=== PATIENT | male | born 1960 | race Hispanic/Latino ===

== ENCOUNTER 2018-09-08 18:50 | Observation (INO) | payer BC, OTHER ==
[~2018-09-08] VITALS: Ht 180.3 cm; Wt 103.4 kg
[~2018-09-08 18:50] MED LIST: NEXIUM40 MG
--- OUTSIDE RECORDS SUMMARY | 2018-09-08 18:53 | XMS REPORT | Clinical Summary ---
Author Author [facility] Address Unknown Phone Unavailable Care Team Providers Care Data Analysis Manager Name Role Phone Asked, No Pcp PCP Unavailable Allergies No Known Allergies Medications End Date Status Medication Sig Dispensed Refills Start Date Active acetaminophen-codeine Take 1 tablet 0 (TYLENOL WITH CODEINE #3) by mouth 8 300-30 mg per tablet every 6 (six) hours as needed. Active b complex vitamins Take 1 0 capsule capsule by mouth daily. Active KRILL OIL ORAL Take by 0 mouth. Active SAW PALMETTO ORAL Take by 0 mouth. 05/29/2019 Active meloxicam (MOBIC) 15 mg Take 1 tablet 30 tablet 1 tabletIndications: (15 mg total) 9 Primary osteoarthritis of by mouth right knee, daily. Patellofemoral arthralgia of right knee Active Problems Problem Noted Date Primary osteoarthritis of right knee 05/29/2018 Patellofemoral arthralgia of right knee 05/29/2018 Kidney stones Encounters Care Team Description Date Type Specialty Sari Multani DO Primary osteoarthritis of right knee (Primary Dx); Patellofemoral arthralgia of right knee 05/29/2018 Office Visit Sports Medicine after 09/07/2017 Family History Medical History Relation Name Comments Prostate cancer Father Liver cancer Mother Diabetes type II Sister Relation Name Status Comments Father Mother Sister Social History Date Tobacco Use Types Packs/Day Years Used Current Some Day Smoker Smokeless Tobacco: Never Used Tobacco Cessation: Ready to Quit: No; Counseling Given: Yes Alcohol Use Drinks/Week oz/Week Comments Yes occasional Sex Assigned at Date Recorded Not on file Industry Job Start Date Occupation Not on file Not on file Not on file Travel End Travel History Travel Start No recent travel history available. Last Filed Vital Signs Time Taken Vital Sign Reading 05/29/2018 8:14 AM PAID SEARCH MARKETING ANALYST Blood Pressure 113/78 05/29/2018 8:14 AM PAID SEARCH MARKETING ANALYST Pulse 57 - Temperature - - Respiratory Rate - - Oxygen Saturation - - Inhaled Oxygen - Concentration 05/29/2018 8:14 AM PAID SEARCH MARKETING ANALYST Weight 107 kg (236 lb 9.6 oz) 05/29/2018 8:14 AM PAID SEARCH MARKETING ANALYST Height 175.3 cm (5' 9") 05/29/2018 8:14 AM PAID SEARCH MARKETING ANALYST Body Mass Index 34.94 Plan of Treatment Health Maintenance Due Date Last Done Comments COLON CANCER SCREENING 2009 SHINGLES VACCINES (#1) 2009 INFLUENZA VACCINE 12/25/2018 Procedures Comments Procedure Name Priority Date/Time Associated Diagnosis XR KNEE 4+ VW RIGHT Routine 05/29/2018 Right knee pain, 8:22 AM PAID SEARCH MARKETING ANALYST unspecified chronicity after 09/07/2017 Results * XR Knee 4+ Vw Right (05/29/2018 8:22 AM PAID SEARCH MARKETING ANALYST) Narrative Performed At [facility] 4V of the right knee were personally reviewed by me in clinic. There are no fractures, dislocations, suspicious bone lesions or soft tissue masses. There is severe osteoarthrosis of the medial compartment with joint space collapse and osteophyte formation. Milder degenerative changes and osteophyte development seen at the patellofemoral joint. Mild varus deformity. Ossicle present in the patellar tendon just inferior to the patella. Sari Multani DO [facility] Performing Organization Address City/State/[facility] Phone Number [facility] [address] [place] [address] after 09/07/2017 Insurance Payer Benefit Subscriber ID Type Phone Address Plan / Group MULTIPLAN ALLIED/PHC xxxxxxxxx PPO S-MULTIPLA N , #1 [facility] (Home) [place] [address] Advance Directives Patient has advance care planning documents on file. For more information, jason rausch contact: Bakari Bellamy [address] [place] [address]
--- NOTE | 2018-09-08 19:29 | NUR ---
FM X 2 WITH PT
--- NOTE | 2018-09-08 19:44 | NUR ---
REPORT TO ANA
--- OUTSIDE RECORDS SUMMARY | 2018-09-08 19:58 | XMS REPORT | Clinical Summary ---
Author Author [facility] Organization [facility] Address Unknown Phone Unavailable Care Team Providers Care Knitting Machine Mechanic Name Role Phone Asked, No Pcp PCP [...] Taken Vital Sign Reading 05/29/2018 8:14 AM PRODUCT SUPPORT MANAGER Blood Pressure 113/78 05/29/2018 8:14 AM PRODUCT SUPPORT MANAGER Pulse 57 - Temperature - - Respiratory Rate - - Oxygen Saturation - - Inhaled Oxygen - Concentration 05/29/2018 8:14 AM PRODUCT SUPPORT MANAGER Weight 107 kg (236 lb 9.6 oz) 05/29/2018 8:14 AM PRODUCT SUPPORT MANAGER Height 175.3 cm (5' 9") 05/29/2018 8:14 AM PRODUCT SUPPORT MANAGER Body Mass Index 34.94 Plan of Treatment Health Maintenance Due Date Last Done Comments COLON CANCER SCREENING 2009 SHINGLES VACCINES (#1) 2009 INFLUENZA VACCINE 12/25/2018 Procedures Comments Procedure Name Priority Date/Time Associated Diagnosis XR KNEE 4+ VW RIGHT Routine 05/29/2018 Right knee pain, 8:22 AM PRODUCT SUPPORT MANAGER unspecified chronicity after 09/07/2017 Results * XR Knee 4+ Vw Right (05/29/2018 8:22 AM PRODUCT SUPPORT MANAGER) Narrative Performed At [facility] 4V of [...] Primary Care Sports Medicine Performing Organization Address City/State/[facility] Phone Number [facility] [address] [place] [address] after 09/07/2017 Insurance Payer Benefit Subscriber ID Type Phone Address Plan / Group MULTIPLAN ALLIED/PHC xxxxxxxxx PPO S-MULTIPLA N , #[address] [facility] (Home) [place] [address] Advance Directives Patient has advance care planning documents on file. For more information, jason rausch contact: Bakari Bellamy [address] [place] [address]
[2018-09-08] MEDS ORDERED: HYDROCODONE/APAP 7.5MG-325MG 1 EA TAB PO PRN (20:00)
[2018-09-08] MEDS ORDERED: SODIUM CHLORIDE FLUSH 10 ML SYR INJ PRN (20:00)
[2018-09-08] MEDS ORDERED: IBUPROFEN 200 MG TAB PO PRN (20:00)
[2018-09-08] MEDS ORDERED: ASPIRIN 81 MG CHEW TAB PO ONE (20:00)
[2018-09-08] MEDS ORDERED: DIPHENHYDRAMINE HCL INJ 50 MG/ML VIAL IV PRN (20:00)
[2018-09-08] MEDS ORDERED: ACETAMINOPHEN 325 MG TAB PO PRN (20:00)
[2018-09-08] MEDS ORDERED: IBUPROFEN 400 MG TAB PO PRN (20:15)
--- NOTE | 2018-09-08 20:16 | Diagnostic Imaging Report ---
EXAMINATION: CXR 1 [facility] INDICATION: Chest pain. Shortness of breath. COMPARISON: None FINDINGS: TUBES and LINES: None. LUNGS: Lungs are well inflated. Lungs are clear. There is no evidence of pneumonia or pulmonary edema. PLEURA: No pleural effusion or pneumothorax. HEART AND MEDIASTINUM: The cardiomediastinal silhouette is unremarkable. There are atherosclerotic calcifications within the aorta. BONES AND SOFT TISSUES: No acute osseous lesion. Soft tissues are unremarkable. UPPER ABDOMEN: No free air under the diaphragm. IMPRESSION: No acute thoracic abnormality. Signed by: Dr. Wyatt Guerra M.D. on 09/08/2018 8:13 PM
[2018-09-08] MEDS: FAMOTIDINE 20 MG/2 ML VIAL IV SCH (20:32)
[2018-09-08 20:55] VITALS: BP 136/73
[2018-09-08 21:00] VITALS: BP 136/73
[2018-09-08] MEDS ORDERED: ZOLPIDEM TARTRATE 5 MG TAB PO PRN (21:00)
--- NOTE | 2018-09-08 21:00 | NUR ---
INITIAL ASSESSMENT COMPLETE, VS STABLE, CALL LIGHT IN REACH, FAMILY AT BEDSIDE, PT HAS IV ACCESS, TELE ON PT, ORIENTED TO ROOM, TOLD TO CALL FOR NEEDS, NO DISTRESS NOTED
[2018-09-08 21:50] VITALS: BP 136/73
[2018-09-09] VITALS: BP 140/74
[2018-09-09 04:00] VITALS: BP 128/63
[2018-09-09 05:54] LABS: CHOL/HDL RATIO 4.9 (3.9-4.7)
--- NOTE | 2018-09-09 06:45 | NUR ---
rounded with security shift supervisor nurse, patient aware of change with family at bedside. call menezes within reach and bed in lowest position
[2018-09-09 07:20] VITALS: BP 105/71
[2018-09-09 07:53] VITALS: BP 105/71
--- NOTE | 2018-09-09 08:06 | History and Physical ---
HISTORY: A 58-year-old male comes in with chest pain. HISTORY OF PRESENT ILLNESS: Mr. Mendy Garcia was in usual state of health until the patient started to have chest pain described as retrosternal. The patient had some stressful events, had a followup with us when apparently the patient felt the chest pain retrosternal. As he came into the emergency room, the patient was given morphine and pain medication. The patient's chest pain did dissipate. The patient felt better. The patient is admitted for chest pain, rule out acute coronary syndrome. Currently, the patient's enzymes have been negative. PAST MEDICAL HISTORY: History of smoking, history of chronic back pain, history of insomnia, and reflux esophagitis. MEDICATIONS: Medicines he takes at home are Nexium, zolpidem. The patient also is on NicoDerm, hydrocodone and acetaminophen. Does not take any of these medications on a regular basis. SOCIAL HISTORY: History of smoking in the past, stopped about one month ago. FAMILY HISTORY: Positive for diabetes mellitus and also mother with cirrhosis of the liver and has secondary to complications of cirrhosis. REVIEW OF SYSTEMS: Positive for chest pain. No shortness of breath. No nausea, vomiting, or diarrhea. No constipation. No rectal bleeding. No hematochezia. No hematemesis. No diplopia. No blurry vision. No paresthesias. No hyperesthesias. ALLERGIES: NO KNOWN ALLERGIES. PAST SURGICAL HISTORY: History of elbow surgery for fracture. Otherwise, all normal. PHYSICAL EXAMINATION: VITAL SIGNS: Temperature 97.5, pulse of 65, respirations 16, blood pressure is 128/63. HEENT: Normocephalic, atraumatic. Pupils are reactive to light and accommodation. CVS: S1, S2 normal. Regular rate and rhythm. ABDOMEN: Nontender, nondistended. EXTREMITIES: No clubbing, no cyanosis, and no edema. LABORATORY VALUES: Troponin's have been negative so far. HDL is 32, LDL is 104. ASSESSMENT: Chest pain, rule out acute coronary syndrome. PLAN: Continue with cardiac markers and possible discharge in the morning. Pending cardiology visit. Further recommendation per clinical course. The patient has been absolutely counseled on continuum of smoking cessation. Further recommendation per clinical course. The patient will be seen by his primary care physician later on this week or early next week. Plan is to discharge him today if okay with Cardiology. MD ISAAC Caldwell/MODL /[id number]
[2018-09-09] MEDS: FAMOTIDINE 20 MG/2 ML VIAL IV SCH (08:30)
[2018-09-09] MEDS ORDERED: NICOTINE 14 MG/EA PATCH TOP SCH (09:00)
[2018-09-09] MEDS ORDERED: ASPIRIN 325 MG TAB EC PO SCH (09:00)
[2018-09-09] MEDS ORDERED: CLOPIDOGREL BISULFATE 75 MG TAB PO ONE (11:00)
--- NOTE | 2018-09-09 11:12 | NUR ---
patient leaving the floor alert and oriented to stress test procedure via wheelchair.
[2018-09-09 11:26] VITALS: BP 133/69
--- NOTE | 2018-09-09 11:39 | NUR ---
patient back on unit with telemetry on, in no distress. call menezes within reach, bed in lowest position and daughter at bedside.
--- NOTE | 2018-09-09 13:38 | NUR ---
patient alert and oriented. discharge instructions given at this time, patient verbalized understanding. IV discontinued, catheter in tact and small dressing applied. patient refused wheelchair assistance and will be escorted out to personal auto for daughter to drive home.
--- NOTE | 2018-09-09 14:14 | Consultation ---
DATE OF CONSULTATION: 09/09/2018 REASON FOR CONSULTATION: Chest pain. HISTORY OF PRESENT ILLNESS: This is a 58-year-old male with history of smoking, reflux, osteoarthritis. The patient presents to [facility] ER apparently with complaints of chest pain lasting for several hours, therefore Cardiology was consulted to evaluate the patient. The patient is seen in room, reports left parasternal chest pain radiating to his left side after receiving bad news at work and also after having a breakup from his girlfriend. States that the chest pain lasted for several hours with some shortness of breath and slight dizziness. Also reports the pain radiated to his left arm, mild in nature and relieved on its own. EKG noted normal sinus rhythm. Initial enzymes negative x2. The patient reports no more chest pain since initial episode. PAST MEDICAL HISTORY: Smoker, tobacco use, reflux, and osteoarthritis. PAST SURGICAL HISTORY: Left elbow. FAMILY HISTORY: Mother apparently with complications from liver cirrhosis and diabetes. Father in his late 60s, apparently history of prostate cancer. 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 He smokes about a quarter pack a day. Denies any alcohol use. ALLERGIES: NO KNOWN ALLERGIES. HOME MEDICATIONS: He apparently uses Nexium as needed and also hydrocodone as needed for generalized pains. REVIEW OF SYSTEMS: GENERAL: Denies any weight changes, any fatigue, weakness, fevers, chills, night sweats. SKIN: No rashes or bruises. HEENT: Denies any nausea, vomiting, any vision changes, blurred vision, double vision, any epistaxis, any hoarseness, sore throat, bleeding gums. CARDIAC: Positive for chest pain as above. Positive dyspnea on exertion. Denies any hypertension, any orthopnea or PND, any lower extremity edema. RESPIRATORY: Positive for dyspnea on exertion. Denies any hemoptysis. GI: Good appetite. Denies any nausea, vomiting, diarrhea, constipation, any hematochezia or melena. URINARY: Positive for urgency and frequency. Denies any hematuria or dysuria. VASCULAR: Denies any lower extremity edema. MUSCULOSKELETAL: Denies any muscle weakness. Positive for generalized joint pain, specifically his knees. Denies any lower extremity swelling. NEUROLOGIC: Denies any tremors, weakness, paralysis, fainting, seizures. HEMATOLOGY: Denies any bruising, any anemia. ENDOCRINE: Denies any heat or cold intolerance, any polyuria or polydipsia. PHYSICAL EXAMINATION: VITAL SIGNS: Height 71 inches, weight 228 pounds, BMI 31. Temperature 96.8, pulse 59, respiratory rate 16, blood pressure 128/63, pulse ox 99% on room air. GENERAL: Appears stated age, reliable informant, obese. SKIN: No rashes or bruises noted. HEENT: Normocephalic. Pupils are equal and reactive. Extraocular movements intact. Oral mucosa pink. NECK: Trachea midline. No thyromegaly noted. No JVD. No carotid bruits noted. HEART: Regular rate and rhythm. PMI about 5th intercostal space. LUNGS: Bilateral breath sounds clear to auscultation. ABDOMEN: Soft, nontender, and nondistended. No organomegaly noted. MUSCULOSKELETAL: Good muscle strength throughout. No lower extremity edema noted. VASCULAR: +2 bilateral radial pulses and +1 DP/PT pulses bilaterally. NEUROLOGIC: Cranial nerves 2 through 12 seem intact. LABS: White count 9, hemoglobin 14, hematocrit 44, platelets 223. Sodium 148, potassium 4.2, chloride 104, bicarb 29, BUN 18, creatinine 0.9, glucose 91. LDL 104, HDL 32, total cholesterol 156, triglycerides 98. Troponin less than 0.05, next 0.001. EKG is showing normal sinus rhythm. ASSESSMENT: 1. Chest pain. 2. Smoker. 3. Obesity. PLAN: 1. The patient presents with chest pain mixed features. So far, enzymes are negative. EKG without any changes suggesting ischemic event. 2. We will go ahead and do a stress test to evaluate symptoms. 3. We will also do an echo to evaluate heart function and structure. 4. We will go ahead and give the patient Plavix. 5. Further recommendations as clinical course dictates. SEEN AND EXAMINED Thank you very much for this consult. Dictated by Kamaljit Garner, MARINE DRAFTER Rosa Acosta MD DC/CARLOS ENRIQUE /[id number] VICKY
--- NOTE | 2018-09-09 14:45 | NUR ---
Visit made by the Spiritual Care Department Pastoral Visitor, Eve Del Real. PV provided pastoral presence, prayer, hospitality, and supportive listening. Pastoral Visitor informed pt/family of the scope of Structural Technician Services and availability. LITA W[employer] Picker Spiritual Care Department O: [phone] Pager: [phone] ([phone] number calling from)
[2018-09-09] MEDS ORDERED: FAMOTIDINE 20 MG TAB PO SCH (16:30)
--- NOTE | 2018-09-09 17:24 | Operative Report ---
DATE OF PROCEDURE: 09/09/2018 SURGEON: Rosa Acosta MD TITLE OF TEST: Cardiac stress test. TECHNICAL DETAILS: The protocol is Shon with target heart rate at 137 per minute. RESULTS: 1. Heart rate increased from 62 to 144 per minute. 2. Blood pressure increased from 120/80 to 160/105. 3. No EKG changes. 4. No chest pain. 5. Total exercise time of 7 minute and 1 second. IMPRESSION: Negative cardiac stress test with good exercise tolerance. Limitations are discussed and explained. Rosa Acosta MD MOJ/MODL /[id number]
== END 2018-09-09 13:41 | disposition home or self-care (01) ==
LOC: FSED 18:50 → ERHOLD 19:51 → IMCU 20:55
PROVIDERS: ADMIT Family Medicine; ATTEND Family Medicine
DX: R07.89 Other chest pain (principal); M19.90 Unspecified osteoarthritis, unspecified site; Z87.891 Personal history of nicotine dependence; K21.9 Gastro-esophageal reflux disease without esophagitis; E66.9 Obesity, unspecified; Z68.31 Body mass index [BMI] 31.0-31.9, adult
CPT/HCPCS: 36415; 71045; 80053; 80061; 80307; 82550; 82553 ×2; 84484 ×2; 85025; 85610; 93005; 93017; 99284; G0378 ×2

== ENCOUNTER 2021-02-14 17:05 | Emergency (ER) | payer OTHER ==
[~2021-02-14] VITALS: Ht 175.3 cm; Wt 112.3 kg
[2021-02-14] MEDS ORDERED: MORPHINE SULFATE INJ 2 MG/ML SYR IV STA (17:25)
[2021-02-14] MEDS ORDERED: ONDANSETRON HCL INJ 2MG/ML 2ML 2 MG/ML VIAL IV STA (17:25)
[2021-02-14] MEDS ORDERED: MORPHINE SULFATE INJ 4 MG/ML INJ 1ML ONE (17:42)
[2021-02-14] MEDS ORDERED: CYCLOBENZAPRINE5 MG PO (19:30)
[2021-02-14] MEDS ORDERED: NAPROSYN500 MG PO (19:30)
[2021-02-14] MEDS ORDERED: KETOROLAC TROMETHAMINE 30 MG/ML VIAL IV STA (19:31)
== END 2021-02-14 19:55 | disposition home or self-care (01) ==
LOC: FSED 17:19
DX: M54.16 Radiculopathy, lumbar region (principal); K80.20 Calculus of gallbladder without cholecystitis without obstruction; K21.9 Gastro-esophageal reflux disease without esophagitis; Z86.73 Personal history of transient ischemic attack (TIA), and cerebral infarction without residual deficits
CPT/HCPCS: 72100; 74176; 80053; 81003; 85025; 96374; 96375; 99284; J1885; J2270 ×2; J2405

== ENCOUNTER 2021-03-06 01:03 | Emergency (ER) | payer OTHER ==
[~2021-03-06] VITALS: Ht 175.3 cm; Wt 112.0 kg
[~2021-03-06 01:03] MED LIST changes: +CYCLOBENZAPRINE5 MG PO; +NAPROSYN500 MG PO
[2021-03-06] MEDS ORDERED: KETOROLAC TROMETHAMINE 30 MG/ML VIAL IV STA (01:33)
[2021-03-06] MEDS ORDERED: ONDANSETRON HCL INJ 2MG/ML 2ML 2 MG/ML VIAL IV STA (01:33)
[2021-03-06] MEDS ORDERED: LIDOCAINE VISC 2% SOLN 15 ML UDC ONE (01:34)
[2021-03-06] MEDS ORDERED: BELLADONNA ALK/PHENOBARBITAL 5 ML UDC ONE (01:34)
[2021-03-06] MEDS ORDERED: MAGNESIUM/ALUMINUM/SIMETHICONE 30 ML UDC ONE (01:35)
[2021-03-06] MEDS ORDERED: SODIUM CHLORIDE 0.9% 1000ML 1,000 ML IV SCH (01:45)
[2021-03-06] MEDS ORDERED: SODIUM CHLORIDE 0.9% 1000ML 1,000 ML ONE (02:24)
[2021-03-06] MEDS ORDERED: KETOROLAC TROMETHAMINE 30 MG/ML VIAL ONE (02:24)
[2021-03-06] MEDS ORDERED: ONDANSETRON HCL INJ 2MG/ML 2ML 2 MG/ML VIAL ONE (02:24)
[2021-03-06] MEDS ORDERED: SODIUM CHLORIDE 0.9% 50ML 50 ML ONE (02:44)
[2021-03-06] MEDS ORDERED: IOPAMIDOL 370 MG/ML 200 ML INFUS..BTL INJ ONE (02:45)
[2021-03-06] MEDS ORDERED: BELLADONNA ALK/PHENOBARBITAL 5 ML UDC PO ONE (03:00)
[2021-03-06] MEDS ORDERED: DONNATAL/LIDOCAINE/MAALOX 30 ML SUSP PO SCH (03:00)
[2021-03-06] MEDS ORDERED: MAGNESIUM/ALUMINUM/SIMETHICONE 30 ML UDC PO ONE (03:00)
[2021-03-06] MEDS ORDERED: LIDOCAINE VISC 2% SOLN 15 ML UDC PO SCH (03:00)
[2021-03-06] MEDS ORDERED: HYDROCODONE/APAP 5MG-325MG TAB ONE (03:43)
[2021-03-06] MEDS ORDERED: HYDROCODONE/APAP 5MG-325MG TAB PO ONE (03:45)
[2021-03-06] MEDS ORDERED: LIDOCAINE1 EAC1 TD (05:41)
[2021-03-06] MEDS ORDERED: METHOCARBAMOL500 MG PO (05:41)
[2021-03-06] MEDS ORDERED: IBUPROFEN600 MG PO (05:41)
[2021-03-06] MEDS ORDERED: PEPCID20 MG PO (05:46)
[2021-03-06 05:53] VITALS: BP 162/101
== END 2021-03-06 05:55 | disposition home or self-care (01) ==
LOC: FSED 01:33
DX: R10.13 Epigastric pain (principal); K80.20 Calculus of gallbladder without cholecystitis without obstruction; K21.9 Gastro-esophageal reflux disease without esophagitis; Z86.73 Personal history of transient ischemic attack (TIA), and cerebral infarction without residual deficits
CPT/HCPCS: 74177; 76705; 80053; 80076; 81003; 85025; 93005; 96374; 96376; 99284; J1885; J2405; J7030; Q9967

== ENCOUNTER 2022-04-21 04:56 | Emergency (ER) | payer OTHER ==
[~2022-04-21] VITALS: Ht 175.3 cm; Wt 112.0 kg
[~2022-04-21 04:56] MED LIST changes: +IBUPROFEN600 MG PO; +LIDOCAINE1 EAC1 TD; +METHOCARBAMOL500 MG PO; +PEPCID20 MG PO
[2022-04-21] MEDS ORDERED: MEDROL4 MG PO (05:38)
[2022-04-21] MEDS ORDERED: GABAPENTIN300 MG PO (05:38)
[2022-04-21] MEDS ORDERED: IBUPROFEN600 MG PO (05:39)
[2022-04-21] MEDS ORDERED: KETOROLAC TROMETHAMINE 30 MG/ML VIAL IM STA (05:40)
[2022-04-21] MEDS ORDERED: KETOROLAC TROMETHAMINE 30 MG/ML VIAL ONE (05:51)
== END 2022-04-21 06:26 | disposition home or self-care (01) ==
LOC: FSED 05:22
DX: M54.12 Radiculopathy, cervical region (principal); K21.9 Gastro-esophageal reflux disease without esophagitis; Z86.73 Personal history of transient ischemic attack (TIA), and cerebral infarction without residual deficits
CPT/HCPCS: 99282; J1885

== ENCOUNTER 2023-03-31 22:38 | Emergency (ER) | payer OTHER ==
[~2023-03-31 22:38] MED LIST changes: +GABAPENTIN300 MG PO; +MEDROL4 MG PO; +METHOCARBAMOL750 MG PO; +PREDNISONE20 MG PO; +ULTRAM 50MG50 MG PO
[2023-03-31] MEDS ORDERED: KETOROLAC TROMETHAMINE 60 MG/2 ML VIAL IM ONE (23:15)
[2023-03-31] MEDS ORDERED: KETOROLAC TROMETHAMINE 30 MG/ML VIAL ONE (23:26)
[2023-03-31] MEDS ORDERED: GABAPENTIN300 MG PO (23:59)
[2023-03-31] MEDS ORDERED: NAPROXEN375 MG PO (23:59)
[2023-04-01 00:05] VITALS: BP 132/88; PULSE 66; RESP 18; TEMP 98.2; O2SAT 98
== END 2023-04-01 00:05 | disposition home or self-care (01) ==
LOC: FSED 22:43
DX: M50.10 Cervical disc disorder with radiculopathy, unspecified cervical region (principal); M48.02 Spinal stenosis, cervical region; M79.601 Pain in right arm; K21.9 Gastro-esophageal reflux disease without esophagitis; Z86.73 Personal history of transient ischemic attack (TIA), and cerebral infarction without residual deficits
CPT/HCPCS: 72125; 73030; 96372; 99283; J1885

== ENCOUNTER 2023-12-06 16:41 | Emergency (ER) | payer MEDICARE, OTHER ==
[~2023-12-06] VITALS: Ht 175.3 cm; Wt 104.3 kg
[~2023-12-06 16:41] MED LIST changes: +NAPROXEN375 MG PO
[2023-12-06 17:04] VITALS: PULSE 64; RESP 18; TEMP 97.5
[2023-12-06] MEDS ORDERED: KETOROLAC TROMETHAMINE 60 MG/2 ML VIAL ONE (17:28)
[2023-12-06] MEDS: KETOROLAC TROMETHAMINE 60 MG/2 ML VIAL IM ONE (17:32)
[2023-12-06 20:29] VITALS: BP 123/66; PULSE 71; RESP 18; TEMP 98.3; O2SAT 99
== END 2023-12-06 20:18 | disposition home or self-care (01) ==
LOC: ER 17:08
DX: S20.212A Contusion of left front wall of thorax, initial encounter (principal); W01.0XXA Fall on same level from slipping, tripping and stumbling without subsequent striking against object, initial encounter; Y93.01 Activity, walking, marching and hiking; Y92.89 Other specified places as the place of occurrence of the external cause; K80.20 Calculus of gallbladder without cholecystitis without obstruction; K21.9 Gastro-esophageal reflux disease without esophagitis; E29.1 Testicular hypofunction; M54.12 Radiculopathy, cervical region; Z86.73 Personal history of transient ischemic attack (TIA), and cerebral infarction without residual deficits
CPT/HCPCS: 71250; 99284; J1885

== ENCOUNTER 2024-12-26 10:13 | Emergency (ER) | payer MEDICARE, OTHER ==
[~2024-12-26] VITALS: Ht 175.3 cm; Wt 112.5 kg
[2024-12-26] MEDS: MAGNESIUM/ALUMINUM/SIMETHICONE 30 ML UDC PO ONE (10:55)
[2024-12-26] MEDS: LIDOCAINE VISC 2% SOLN 15 ML UDC PO ONE (10:55)
[2024-12-26] MEDS: ASPIRIN 81 MG CHEW TAB PO ONE (10:56)
[2024-12-26] MEDS: ACETAMINOPHEN 325 MG TAB PO ONE (10:56)
[2024-12-26] MEDS: FAMOTIDINE 20 MG/2 ML VIAL IV STA (10:57)
[2024-12-26 13:18] VITALS: PULSE 67; RESP 14; TEMP 98.5; O2SAT 96
== END 2024-12-26 13:29 | disposition other institution (70) ==
LOC: FSED 10:20
DX: R06.02 Shortness of breath (principal); R07.9 Chest pain, unspecified; K21.9 Gastro-esophageal reflux disease without esophagitis; E29.1 Testicular hypofunction; Z11.52 Encounter for screening for COVID-19; Z86.73 Personal history of transient ischemic attack (TIA), and cerebral infarction without residual deficits
CPT/HCPCS: 0223U; 71046; 80053; 84484; 85025; 85379; 87400; 93005; 99284; J1308; J2470